=== PATIENT | female | born 1980 | race Two or more races ===

== ENCOUNTER 2023-02-21 17:45 | Observation (INO) | payer MEDICAID ==
[~2023-02-21] VITALS: Ht 157.5 cm; Wt 90.7 kg
[2023-02-21 18:57] VITALS: BP 129/76
[2023-02-21 18:57] LABS: BASOPHILS % (AUTO) 0.6 % (0.0-2.0); EOSINOPHILS # (AUTO) 0.2 K/uL (0-0.4); EOSINOPHILS % (AUTO) 2.7 % (0.0-4.0); HEMATOCRIT 36.9 % (36-48); HEMOGLOBIN 12.9 g/dL (12.0-16.0); LYMPHOCYTES # (AUTO) 1.8 K/uL (2.5-16.5); LYMPHOCYTES % (AUTO) 21.4 % (20.5-51.1); MEAN CORPUSCULAR HEMOGLOBIN 30 pg (27-31); MEAN CORPUSCULAR HGB CONC 35 g/dL (33-37); MEAN CORPUSCULAR VOLUME 85.3 fL (80-94); MONOCYTES # (AUTO) 0.5 K/uL (0.8-1.0); MONOCYTES % (AUTO) 5.8 % (1.7-9.3); NEUTROPHILS # (AUTO) 5.7 K/uL (1.8-7.7); NEUTROPHILS % (AUTO) 69.5 % (42.2-75.2); PLATELET COUNT (AUTO) 355 K/uL (140-450); RED BLOOD CELL COUNT(AUTO) 4.33 MIL/uL (4.20-5.40); RED CELL DISTRIBUTION WIDTH 13.1 % (11.6-13.7); WHITE BLOOD COUNT (AUTO) 8.2 K/uL (4.8-10.8)
[2023-02-21 19:00] LABS: APPEARANCE,URINE CLEAR (CLEAR); BILIRUBIN,URINE NEGATIVE (NEGATIVE); BLOOD, URINE 2+ (NEGATIVE); COLOR,URINE YELLOW (YELLOW); LEUKOCYTE ESTERASE ,URINE NEGATIVE (NEGATIVE); NITRITE, URINE NEGATIVE (NEGATIVE); UGLUCOSE NEGATIVE (NEGATIVE)
[2023-02-21 20:38] LABS: BARBITURATE, URINE NEGATIVE ng/ml (NEG <=200); BENZODIAZEPINE, URINE NEGATIVE ng/mL (NEG <=200); CANNABINOID, URINE NEGATIVE ng/mL (NEG <=50); COCAINE, URINE NEGATIVE ng/mL (NEG <=300); OPIATE, URINE NEGATIVE ng/mL (NEG <=2000); PHENCYCLIDINE SCREEN,URINE NEGATIVE ng/mL (NEG <=25)
[2023-02-21 21:56] LABS: WBC,URINE NONE SEEN /HPF (0-5)
== END 2023-02-21 20:30 | disposition home or self-care (01) ==
LOC: MLD 17:45
PROVIDERS: ADMIT Obstetrics & Gynecology; ATTEND Obstetrics & Gynecology
DX: O46.93 Antepartum hemorrhage, unspecified, third trimester (principal); Z20.822 Contact with and (suspected) exposure to COVID-19; O09.523 Supervision of elderly multigravida, third trimester; O10.913 Unspecified pre-existing hypertension complicating pregnancy, third trimester; Z3A.29 29 weeks gestation of pregnancy
CPT/HCPCS: 36415; 76805; 76817; 80305; 81001; 85025; 85384; 86592; 86703; 86762; 86886; 86900; 86901; 87340; 87426; G0378; Q0092

== ENCOUNTER 2023-03-15 15:46 | Emergency (ER) | payer MEDICAID ==
[~2023-03-15] VITALS: Ht 157.5 cm; Wt 92.5 kg
[2023-03-15 15:48] VITALS: BP 144/90
[2023-03-15] MEDS ORDERED: ACET-10509 PO (16:48)
[2023-03-15] MEDS ORDERED: ROB PO (16:48)
[2023-03-15 17:09] VITALS: BP 111/81
--- NOTE | 2023-03-15 17:09 | NUR ---
Patient discharged with v/s stable. Written and verbal after care instructions given. Patient alert, oriented and verbalized understanding of instructions. Ambulatory with steady gait. All questions addressed prior to discharge. ID band removed. Patient advised to follow up with PMD. Rx of TYLENOL AND ROBITUSSIN given. Opportunity to ask questions provided and answered.
--- NOTE | 2023-03-15 17:10 | NUR ---
The patient's care was reviewed and supervised by Britney Morales, RN, RN.
== END 2023-03-15 17:09 | disposition home or self-care (01) ==
LOC: MED 15:46
DX: O99.513 Diseases of the respiratory system complicating pregnancy, third trimester (principal); J06.9 Acute upper respiratory infection, unspecified; Z3A.32 32 weeks gestation of pregnancy
CPT/HCPCS: 99282

== ENCOUNTER 2023-03-18 13:02 | Observation (INO) | payer MEDICAID ==
[~2023-03-18] VITALS: Ht 157.5 cm; Wt 93.0 kg
[~2023-03-18 13:02] MED LIST: ACET-10509 PO; ROB PO
[2023-03-18] MEDS ORDERED: PREN-543 PO (13:55)
[2023-03-18 14:00] VITALS: BP 123/76
[2023-03-18] MEDS ORDERED: BENZONATATE 100 MG CAPLF PO SCH (14:35)
[2023-03-18] MEDS ORDERED: ALBUTEROL 0.083% 2.5 MG/3 ML NEBU INH SCH (14:35)
--- NOTE | 2023-03-18 15:15 | NUR ---
PATIENT HAS BEEN SCREENED AND CATEGORIZED LOW NUTRITION RISK. PATIENT WILL BE SEEN WITHIN 7 DAYS OF ADMISSION. 03/25/23 REVIEWED BY UMESH [address]
== END 2023-03-18 16:10 | disposition home or self-care (01) ==
LOC: MLD 13:02
PROVIDERS: ADMIT Obstetrics & Gynecology; ATTEND Obstetrics & Gynecology
DX: O26.893 Other specified pregnancy related conditions, third trimester (principal); R05.9 Cough, unspecified; Z20.822 Contact with and (suspected) exposure to COVID-19; O62.9 Abnormality of forces of labor, unspecified; Z3A.32 32 weeks gestation of pregnancy
CPT/HCPCS: 76819; 87426; G0378; J7613; Q0092

== ENCOUNTER 2023-05-02 05:10 | Inpatient (IN) | payer MEDICAID ==
[~2023-05-02] VITALS: Ht 157.5 cm; Wt 95.3 kg
[~2023-05-02 05:10] MED LIST changes: +PREN-543 PO
[2023-05-02] MEDS ORDERED: LACTATED RINGERS 1,000 ML IV SCH (06:00)
[2023-05-02 06:54] VITALS: BP 127/72
[2023-05-02 06:59] LABS: BASOPHILS % (AUTO) 0.5 % (0.0-2.0); EOSINOPHILS # (AUTO) 0.3 K/uL (0-0.4); LYMPHOCYTES # (AUTO) 1.9 K/uL (2.5-16.5); LYMPHOCYTES % (AUTO) 25.8 % (20.5-51.1); MEAN CORPUSCULAR HEMOGLOBIN 29 pg (27-31); MEAN CORPUSCULAR HGB CONC 34 g/dL (33-37); MEAN CORPUSCULAR VOLUME 84.3 fL (80-94); MONOCYTES # (AUTO) 0.5 K/uL (0.8-1.0); MONOCYTES % (AUTO) 6.7 % (1.7-9.3); NEUTROPHILS # (AUTO) 4.7 K/uL (1.8-7.7); PLATELET COUNT (AUTO) 303 K/uL (140-450); RED BLOOD CELL COUNT(AUTO) 4.15 MIL/uL (4.20-5.40); RED CELL DISTRIBUTION WIDTH 13.6 % (11.6-13.7); WHITE BLOOD COUNT (AUTO) 7.5 K/uL (4.8-10.8)
[2023-05-02 07:07] LABS: APPEARANCE,URINE CLEAR (CLEAR); BILIRUBIN,URINE NEGATIVE (NEGATIVE); BLOOD, URINE 1+ (NEGATIVE); COLOR,URINE YELLOW (YELLOW); LEUKOCYTE ESTERASE ,URINE NEGATIVE (NEGATIVE); NITRITE, URINE NEGATIVE (NEGATIVE); UGLUCOSE NEGATIVE (NEGATIVE)
[2023-05-02] MEDS ORDERED: ceFAZolin 2,000 MG VIAL ONE ×2 (07:15→07:17)
[2023-05-02] MEDS ORDERED: MORPHINE PRES FREE 10 MG/10 ML AMP IV ONE (07:17)
[2023-05-02] MEDS ORDERED: MIDAZOLAM 2 MG/2 ML VIAL ONE (07:18)
[2023-05-02 07:26] LABS: ALBUMIN 2.3 g/dL (3.4-5.0); ANION GAP 14.7 (8-16); CARBON DIOXIDE 22.8 mmol/L (21-32); CREATININE 0.5 mg/dL (0.6-1.3); POTASSIUM 3.5 mmol/L (3.5-5.1); TOTAL BILIRUBIN 0.3 mg/dL (0.0-1.0)
[2023-05-02] MEDS ORDERED: MORPHINE SULFATE 5 MG/ML VIAL ONE (07:45)
[2023-05-02] MEDS ORDERED: METOCLOPRAMIDE 10 MG/2 ML INJ VIAL ONE ×2 (07:45→14:58)
[2023-05-02 07:51] LABS: PROTHROMBIN TIME 9.8 secs (10.8-13.4)
[2023-05-02] MEDS ORDERED: ONDANSETRON 4 MG/2 ML VIAL IVP PRN ×2 (08:00)
[2023-05-02] MEDS ORDERED: MEPERIDINE 25 MG/ML SYR IVP PRN (08:00)
[2023-05-02] MEDS ORDERED: NALBUPHINE 10 MG/ML AMP IVP PRN (08:00)
[2023-05-02] MEDS ORDERED: HYDROmorphone 1 MG/ML AMP IVP PRN (08:00)
[2023-05-02] MEDS ORDERED: NALOXONE 0.4 MG/ML VIAL IVP PRN ×3 (08:00)
[2023-05-02] MEDS ORDERED: diphenhydrAMINE 50 MG/ML VIAL IVP PRN ×2 (08:00)
[2023-05-02] MEDS ORDERED: OXYTOCIN 20 UNITS in LACTATED RINGERS 1,000 ML IV SCH ×2 (08:00→10:25)
--- NOTE | 2023-05-02 08:43 | NUR ---
PATIENT HAS BEEN SCREENED AND CATEGORIZED LOW NUTRITION RISK. PATIENT WILL BE SEEN WITHIN 7 DAYS OF ADMISSION. 05/09/[address]
[2023-05-02] MEDS ORDERED: METHYLERGONOVINE 0.2 MG/ML AMP IM PRN (10:25)
[2023-05-02] MEDS ORDERED: TEMAZEPAM 15 MG CAP PO PRN (10:25)
[2023-05-02] MEDS ORDERED: MEASLES, MUMPS, AND RUBELLA 1 VIAL SQVAC PRN (10:25)
[2023-05-02] MEDS: KETOROLAC 30 MG/ML VIAL IM/IVP SCH ×2 (12:00→17:58)
[2023-05-02] MEDS ORDERED: OXYTOCIN 20 UNITS/LR PREMIX 1,000 ML IV ONE ×2 (12:26→20:13)
[2023-05-02] MEDS ORDERED: PANTOPRAZOLE 40 MG INJ VIAL IVP SCH (15:00)
[2023-05-02] MEDS ORDERED: METOCLOPRAMIDE 10 MG/2 ML INJ VIAL IVP ONE (15:00)
[2023-05-02] MEDS ORDERED: METOCLOPRAMIDE 10 MG/2 ML INJ VIAL IVP SCH ×2 (21:00)
[2023-05-02] MEDS ORDERED: DOCUSATE SOD/SENNA 50/8.6 MG 1 TAB PO SCH (21:00)
[2023-05-02] MEDS ORDERED: oxyCODONE/APAP 5/325 MG 1 TAB TAB PO PRN (23:00)
[2023-05-03 05:11] LABS: BASOPHILS % (AUTO) 0.3 % (0.0-2.0); EOSINOPHILS # (AUTO) 0.1 K/uL (0-0.4); EOSINOPHILS % (AUTO) 0.6 % (0.0-4.0); HEMATOCRIT 32.6 % (36-48); HEMOGLOBIN 11.3 g/dL (12.0-16.0); LYMPHOCYTES # (AUTO) 1.3 K/uL (2.5-16.5); LYMPHOCYTES % (AUTO) 13.8 % (20.5-51.1); MEAN CORPUSCULAR HEMOGLOBIN 29 pg (27-31); MEAN CORPUSCULAR HGB CONC 35 g/dL (33-37); MEAN CORPUSCULAR VOLUME 83.7 fL (80-94); MONOCYTES # (AUTO) 0.6 K/uL (0.8-1.0); MONOCYTES % (AUTO) 5.9 % (1.7-9.3); NEUTROPHILS # (AUTO) 7.7 K/uL (1.8-7.7); NEUTROPHILS % (AUTO) 79.4 % (42.2-75.2); PLATELET COUNT (AUTO) 294 K/uL (140-450); RED BLOOD CELL COUNT(AUTO) 3.89 MIL/uL (4.20-5.40); RED CELL DISTRIBUTION WIDTH 13.6 % (11.6-13.7); WHITE BLOOD COUNT (AUTO) 9.7 K/uL (4.8-10.8)
[2023-05-03] MEDS: KETOROLAC 30 MG/ML VIAL IM/IVP SCH (08:28)
[2023-05-03] MEDS ORDERED: PANTOPRAZOLE 40 MG INJ VIAL IVP SCH (09:21)
[2023-05-03] MEDS: SIMETHICONE 80 MG TAB.CHEW PO PRN (09:36)
[2023-05-03] MEDS: oxyCODONE/APAP 5/325 MG 1 TAB TAB PO PRN (17:38)
[2023-05-03] MEDS: IBUPROFEN 800 MG TAB PO PRN (19:40)
[2023-05-04] MEDS ORDERED: CAMERA MC ONE (03:16)
[2023-05-04] MEDS: oxyCODONE/APAP 5/325 MG 1 TAB TAB PO PRN (04:13)
[2023-05-04] MEDS: IBUPROFEN 800 MG TAB PO PRN (06:15)
[2023-05-04] MEDS: SIMETHICONE 80 MG TAB.CHEW PO PRN (09:07)
== END 2023-05-04 14:50 | disposition home or self-care (01) | DRG 539 ==
LOC: MLD 05:10 → MFCC 10:42
PROVIDERS: ADMIT Obstetrics & Gynecology; ATTEND Obstetrics & Gynecology
PROC: 0UB70ZZ Excision of Bilateral Fallopian Tubes, Open Approach (ICD-10-PCS; 2023-05-02)
PROC: 10D00Z1 Extraction of Products of Conception, Low, Open Approach (ICD-10-PCS; principal; 2023-05-02 07:30)
DX: O34.211 Maternal care for low transverse scar from previous cesarean delivery (principal); Z20.822 Contact with and (suspected) exposure to COVID-19; Z30.2 Encounter for sterilization; Z37.0 Single live birth; Z3A.39 39 weeks gestation of pregnancy
CPT/HCPCS: 36415; 80053; 81003; 85025; 85610; 85730; 86592; 86762; 86886; 86900; 86901; 87081; 87340; 88302; 90715; C9113; J1200; J1885; J2250; J2270; J2405; J2590; J2765; J7030; J7120

== ENCOUNTER 2023-07-09 17:34 | Emergency (ER) | payer MEDICAID ==
[~2023-07-09] VITALS: Ht 157.5 cm; Wt 83.6 kg
[~2023-07-09 17:34] MED LIST changes: -ACET-10509 PO; +ALBU0.0912 INH; +CEPH-588 PO; -PREN-543 PO; -ROB PO
[2023-07-09 17:47] VITALS: PULSE 71; RESP 20; TEMP 98.7; O2SAT 98
[2023-07-09 19:34] LABS: BASOPHILS # (AUTO) 0.1 K/uL (0.00-0.22); EOSINOPHILS # (AUTO) 0.9 K/uL (0-0.4); EOSINOPHILS % (AUTO) 10.5 % (0.0-4.0); HEMATOCRIT 31.1 % (36-48); HEMOGLOBIN 10.4 g/dL (12.0-16.0); LYMPHOCYTES # (AUTO) 2.7 K/uL (2.5-16.5); MEAN CORPUSCULAR HEMOGLOBIN 27 pg (27-31); MEAN CORPUSCULAR HGB CONC 33 g/dL (33-37); MEAN CORPUSCULAR VOLUME 79.3 fL (80-94); MONOCYTES # (AUTO) 0.4 K/uL (0.8-1.0); MONOCYTES % (AUTO) 4.2 % (1.7-9.3); NEUTROPHILS # (AUTO) 4.6 K/uL (1.8-7.7); NEUTROPHILS % (AUTO) 53.3 % (42.2-75.2); PLATELET COUNT (AUTO) 491 K/uL (140-450); RED BLOOD CELL COUNT(AUTO) 3.92 MIL/uL (4.20-5.40); WHITE BLOOD COUNT (AUTO) 8.6 K/uL (4.8-10.8)
[2023-07-09 19:48] LABS: ALBUMIN 3.1 g/dL (3.4-5.0); ANION GAP 13.6 (8-16); CARBON DIOXIDE 25.1 mmol/L (21-32); CREATININE 0.7 mg/dL (0.6-1.3); POTASSIUM 3.7 mmol/L (3.5-5.1); TOTAL BILIRUBIN 0.2 mg/dL (0.0-1.0)
--- NOTE | 2023-07-09 20:13 | NUR ---
PT TAKEN TO BED 8
--- NOTE | 2023-07-09 20:15 | NUR ---
URINE WALKED TO LAB.
--- NOTE | 2023-07-09 20:20 | NUR ---
42 YO F BIB SELF C/O ABD PAIN AND VAGINAL BLEEDING X 2 MONTHS. PT STATES SHE FEELS DIZZINES AND TIRED CONSTANTLY THROUGHOUT THE DAY. PT AXO4. CALL LIGHT WITHIN REACH. NKDA NO MED HX.
--- NOTE | 2023-07-09 20:21 | NUR ---
ULTRASOUND AT BEDSIDE.
[2023-07-09 20:38] LABS: APPEARANCE,URINE SL CLOUDY (CLEAR); BILIRUBIN,URINE 1+ (NEGATIVE); BLOOD, URINE 3+ (NEGATIVE); COLOR,URINE ORANGE (YELLOW); LEUKOCYTE ESTERASE ,URINE TRACE (NEGATIVE); NITRITE, URINE NEGATIVE (NEGATIVE); UGLUCOSE NEGATIVE (NEGATIVE)
--- NOTE | 2023-07-09 20:50 | NUR ---
DR TYSON AT BEDSIDE
[2023-07-09 21:11] LABS: RBC,URINE 50-80 /HPF (0-5); TRICHOMONAS,URINE None Seen /HPF (None Seen); YEAST,URINE None Seen /HPF (None Seen)
[2023-07-09] MEDS: ALBUTEROL 0.083% 2.5 MG/3 ML NEBU INH ONE (21:37)
[2023-07-09] MEDS: IPRATROPIUM 0.02% 0.5 MG/2.5 ML NEBU INH ONE (21:37)
[2023-07-09 21:38] VITALS: PULSE 77; RESP 16; O2SAT 98
--- NOTE | 2023-07-09 21:46 | NUR ---
Respiratory Therapist at bedside for respiratory intervention
[2023-07-09 21:48] VITALS: BP 152/91; PULSE 77; RESP 12; O2SAT 100
--- NOTE | 2023-07-09 22:07 | NUR ---
pt to CT via wheelchair
--- NOTE | 2023-07-09 22:22 | NUR ---
PT BACK FROM CT
[2023-07-10] MEDS ORDERED: CEPH-588 PO (00:55)
[2023-07-10] MEDS ORDERED: IBUP-2213 PO (00:56)
--- NOTE | 2023-07-10 01:07 | NUR ---
Patient discharged with v/s stable. Written and verbal after care instructions given and explained. Patient verbalized understanding. Ambulatory with steady gait. All questions addressed prior to discharge. Advised to follow up with PMD.
== END 2023-07-10 01:07 | disposition home or self-care (01) ==
LOC: MED 17:34
DX: N93.9 Abnormal uterine and vaginal bleeding, unspecified (principal); J45.909 Unspecified asthma, uncomplicated; Z79.899 Other long term (current) drug therapy
CPT/HCPCS: 36415; 74177; 76830; 80053; 81001; 81025; 85025; 87086; 94640; 99285; J7613; J7644; Q0092; Q9967

== ENCOUNTER 2023-09-01 15:29 | Emergency (ER) | payer MEDICAID ==
[~2023-09-01] VITALS: Ht 160 cm; Wt 86.2 kg
[~2023-09-01 15:29] MED LIST changes: +IBUP-2213 PO
[2023-09-01 15:49] VITALS: BP 177/70; PULSE 91; RESP 20; TEMP 98; O2SAT 98
[2023-09-01] MEDS ORDERED: NACL 0.9% 1,000 ML IV SCH (16:30)
[2023-09-01] MEDS ORDERED: cefTRIAXone 1,000 MG in DEXT 5% MINI-BAG PLUS 50 ML IV ONE (16:30)
[2023-09-01] MEDS ORDERED: KETOROLAC 30 MG/ML VIAL IVP ONE (17:25)
[2023-09-01 17:28] LABS: BASOPHILS # (AUTO) 0.1 K/uL (0.00-0.22); EOSINOPHILS # (AUTO) 1.2 K/uL (0-0.4); EOSINOPHILS % (AUTO) 10.7 % (0.0-4.0); HEMATOCRIT 29.4 % (36-48); HEMOGLOBIN 9.4 g/dL (12.0-16.0); LYMPHOCYTES # (AUTO) 2.5 K/uL (2.5-16.5); MEAN CORPUSCULAR HEMOGLOBIN 22 pg (27-31); MEAN CORPUSCULAR HGB CONC 32 g/dL (33-37); MEAN CORPUSCULAR VOLUME 68.7 fL (80-94); MONOCYTES # (AUTO) 0.4 K/uL (0.8-1.0); MONOCYTES % (AUTO) 3.9 % (1.7-9.3); NEUTROPHILS # (AUTO) 6.6 K/uL (1.8-7.7); NEUTROPHILS % (AUTO) 61.4 % (42.2-75.2); PLATELET COUNT (AUTO) 586 K/uL (140-450); RED BLOOD CELL COUNT(AUTO) 4.29 MIL/uL (4.20-5.40); RED CELL DISTRIBUTION WIDTH 17.6 % (11.6-13.7); WHITE BLOOD COUNT (AUTO) 10.8 K/uL (4.8-10.8)
[2023-09-01] MEDS ORDERED: cefTRIAXone 1,000 MG VIAL ONE (17:29)
[2023-09-01 17:46] LABS: APPEARANCE,URINE CLEAR (CLEAR); BILIRUBIN,URINE NEGATIVE (NEGATIVE); BLOOD, URINE 3+ (NEGATIVE); COLOR,URINE YELLOW (YELLOW); LEUKOCYTE ESTERASE ,URINE NEGATIVE (NEGATIVE); NITRITE, URINE NEGATIVE (NEGATIVE); PH,URINE 5.5 (5.0-9.0); PROTEIN,URINE NEGATIVE (NEGATIVE); UGLUCOSE NEGATIVE (NEGATIVE); UROBILINOGEN,URINE 0.2 EU/dL (0.2 - 1)
[2023-09-01 17:49] LABS: ALBUMIN 3.3 g/dL (3.4-5.0); ANION GAP 12.6 (8-16); CALCIUM 9.3 mg/dL (8.5-10.1); CARBON DIOXIDE 24.8 mmol/L (21-32); CREATININE 0.7 mg/dL (0.6-1.3); POTASSIUM 3.4 mmol/L (3.5-5.1); TOTAL BILIRUBIN 0.2 mg/dL (0.0-1.0); TOTAL PROTEIN, SERUM 7.9 g/dL (6.4-8.2)
[2023-09-01 17:55] LABS: LACTIC ACID 0.9 mmol/L (0.4-2.0)
[2023-09-01 17:58] LABS: BACTERIA,URINE FEW /HPF (None Seen); RBC,URINE 20-50 /HPF (0-5); SQUAMOUS EPITHELIAL CELL,UR 4-10 (MOD) /LPF (0-3 (FEW)); WBC,URINE 0-5 /HPF (0-5)
[2023-09-01 18:22] VITALS: O2SAT 96
[2023-09-01] MEDS ORDERED: MEDR10TA PO (18:27)
[2023-09-01 19:19] VITALS: BP 146/81; PULSE 88; RESP 17; TEMP 98.5; O2SAT 97
== END 2023-09-01 19:19 | disposition home or self-care (01) ==
LOC: MED 15:29
DX: N93.8 Other specified abnormal uterine and vaginal bleeding (principal); N84.0 Polyp of corpus uteri; J45.909 Unspecified asthma, uncomplicated; R10.2 Pelvic and perineal pain; Z98.890 Other specified postprocedural states; Z79.899 Other long term (current) drug therapy; Z79.1 Long term (current) use of non-steroidal anti-inflammatories (NSAID); Z79.2 Long term (current) use of antibiotics
CPT/HCPCS: 36415; 76856; 80053; 81001; 81025; 83605; 83690; 84702; 85025; 87040; 87086; 96361; 96365; 96375; 99285; J0696; J1885; J7030; Q0092

== ENCOUNTER 2024-02-11 09:08 | Day surgery (SDC) | payer OTHER ==
[~2024-02-11] VITALS: Ht 160 cm; Wt 83.9 kg
[~2024-02-11 09:08] MED LIST changes: +MEDR10TA PO
[2024-02-11 10:17] LABS: CALCIUM 8.6 mg/dL (8.5-10.1); CARBON DIOXIDE 22.4 mmol/L (21-32); CREATININE 0.7 mg/dL (0.6-1.3); POTASSIUM 4.4 mmol/L (3.5-5.1); TOTAL BILIRUBIN 0.2 mg/dL (0.0-1.0); TOTAL PROTEIN, SERUM 8.5 g/dL (6.4-8.2)
[2024-02-11] MEDS ORDERED: ACETAMINOPHEN 100 ML IV ONE (11:28)
[2024-02-11] MEDS ORDERED: fentaNYL citrate 0.05 MG/ML VIAL ONE (11:31)
[2024-02-11] MEDS ORDERED: MIDAZOLAM 2 MG/2 ML VIAL ONE (11:31)
[2024-02-11] MEDS ORDERED: PROPOFOL 200 MG/20 ML VIAL IV ONE ×2 (11:32→12:00)
[2024-02-11] MEDS ORDERED: ONDANSETRON 4 MG/2 ML VIAL ONE (12:01)
[2024-02-11] MEDS: FERRIC SUBSULFATE 20%-22%-8 ML PASTE ONE (12:35)
[2024-02-11] MEDS ORDERED: HYDROmorphone PFS 2 MG/ML SYR ONE (12:49)
[2024-02-11] MEDS: HYDROmorphone 1 MG/ML AMP IVP PRN (12:50)
== END 2024-02-11 15:45 | disposition home or self-care (01) ==
LOC: MDS 09:08 → MMU 09:09 → MDS 15:45
PROVIDERS: ATTEND Obstetrics & Gynecology
DX: N92.0 Excessive and frequent menstruation with regular cycle (principal); D25.9 Leiomyoma of uterus, unspecified; D64.9 Anemia, unspecified; K21.9 Gastro-esophageal reflux disease without esophagitis; E66.3 Overweight; Z68.32 Body mass index [BMI] 32.0-32.9, adult; Z98.891 History of uterine scar from previous surgery; Z79.899 Other long term (current) drug therapy; Z98.890 Other specified postprocedural states
CPT/HCPCS: 36415; 58558; 80053; 86886; 86900; 86901; 86920; J1170; J2250; J2405; J2704; J3010; J7120; P9016; 88305; 93005